=== PATIENT | female | born 1975 | race Caucasian/White ===

== ENCOUNTER 2017-01-04 01:34 | Emergency (ER) | payer OTHER ==
[~2017-01-04] VITALS: Ht 167.6 cm; Wt 80.0 kg
[2017-01-04] MEDS ORDERED: SYNTHROID0.088 MG/T PO (01:36)
[2017-01-04] MEDS ORDERED: ATARAX 25MG25 MG/TAB PO (01:43)
[2017-01-04 01:44] VITALS: TEMP 97.7
[2017-01-04 04:08] VITALS: BP 125/74; PULSE 77
== END 2017-01-04 04:10 | disposition home or self-care (01) ==
LOC: COL.ER 01:34
DX: S01.81XA Laceration without foreign body of other part of head, initial encounter (principal); S63.502A Unspecified sprain of left wrist, initial encounter; V69.59XA Passenger in heavy transport vehicle injured in collision with other motor vehicles in traffic accident, initial encounter; Y92.410 Unspecified street and highway as the place of occurrence of the external cause